=== PATIENT | male | born 1970 | race Hispanic/Latino ===

== ENCOUNTER 2017-01-24 21:17 | Emergency (ER) | payer BC, OTHER ==
[2017-01-24 21:23] VITALS: BMI 27.8
[2017-01-24 21:27] VITALS: BP 111/73; PULSE 68; RESP 16; TEMP 98.1; O2SAT 95
[2017-01-24] MEDS ORDERED: Naproxen 550 mg Tab PO STA (22:00)
[2017-01-24] MEDS ORDERED: TDAP Vaccine 0.5 mL Syr IM ONE (22:00)
[2017-01-24] MEDS ORDERED: Silver Sulfadiazine 1% Cream (20 gm) TOP STA (22:00)
--- NOTE | 2017-01-24 22:04 | ED PDOC ---
Arrival/HPI - General Chief Complaint: Burn Time Seen by Provider: 01/24/17 22:00 Historian: Patient - History of Present Illness Narrative History of Present Illness (Text): 01/24/17 22:13 46 yo M presents the ER after he sustained a burn to the right thumb, first and second digit while he was grilling tonight prior to arrival. Denies any decrease in range of motion, numbness, fever, any other injury. PMD Condo Past Medical History - Provider Review Nursing Documentation Reviewed: Yes - Infectious Disease Hx of Infectious Diseases: None - Tetanus Immunization Tetanus Immunization: Unknown - Cardiac Hx Pacemaker: No - Neurological Hx Paralysis: No - Hematological/Oncological Hx Blood Transfusions: No Hx Blood Transfusion Reaction: No - Musculoskeletal/Rheumatological Hx Musculoskeletal Disorders: No - Psychiatric Hx Emotional Abuse: No Hx Physical Abuse: No Hx Substance Use: No - Anesthesia Hx Anesthesia: No Hx Anesthesia Reactions: No Hx Malignant Hyperthermia: No - Suicidal Assessment Feels Threatened In Home Enviroment: No Family/Social History - Physician Review Nursing Documentation Reviewed: Yes Family/Social History: No Known Family HX Smoking Status: Never Smoked Hx Alcohol Use: Yes (SOCIALLY) Frequency of alcohol use: Socially Hx Substance Use: No Allergies/Home Meds Allergies/Adverse Reactions: Allergies No Known Allergies Allergy (Verified 01/24/17 21:23) Review of Systems - Review of Systems Constitutional: Normal. absent: Fatigue, Weight Change, Fevers Musculoskeletal: Normal. absent: Arthralgias, Back Pain, Neck Pain Skin: Normal, Other (burn). absent: Rash, Pruritis, Skin Lesions Physical Exam Vital Signs Reviewed: Yes Vital Signs Temp Pulse Resp BP Pulse Ox 01/24/17 21:17 98.1 F 68 16 111/73 95 Temperature: Afebrile Blood Pressure: Normal Pulse: Regular Respiratory Rate: Normal Appearance: Positive for: Well-Appearing, Non-Toxic, Comfortable Pain Distress: Mild Mental Status: Positive for: Alert and Oriented X 3 - Systems Exam Upper Extremity: Present: Normal Inspection, Normal ROM, NORMAL PULSES, Neurovascularly Intact, Capillary Refill < 2s, Norm 2-Pt Discrimination, Other ( +first and second dergee burn to the thumb, 1st and 2nd digit, +FROM, cap refill normal, sensation intact). No: Cyanosis, Edema, Deformity Medical Decision Making ED Course and Treatment: 01/24/17 22:16 46 yo M presents the ER after he sustained a burn to the right thumb, first and second digit while he was grilling tonight prior to arrival. Plan: - Tdap IM - Naprosyn PO - Silvadene - Wound dressing Patient advised to keep his wound clean, advised to clean daily with regular soap and water, apply Silvadene twice a day and a clean dressing. Patient advised to follow up with primary care physician in 1-2 days without fail. Advised to take medication as prescribed. Return to the emergency room at any time for any new or worsening symptoms. Patient states he fully agrees with and understands discharge instructions. States that he agrees with the plan and disposition. Verbalized and repeated discharge instructions and plan. I have given the patient opportunity to ask any additional questions. - Medication Orders Current Medication Orders: Discontinued Medications Naproxen (Anaprox Ds) 550 mg PO ONCE STA Stop: 01/24/17 22:01 Silver Sulfadiazine (Silvadene 1% 20 Gm) 1 ea TOP STAT STA Stop: 01/24/17 22:01 Tetanus/Reduced Diphtheria/Acell Pertussis (Boostrix Vaccine Inj) 0.5 ml IM .ONCE ONE Stop: 01/24/17 22:01 - PA / JEWEL GAUGER / Resident Statement / has reviewed & agrees with the documentation as recorded. Disposition/Present on Arrival - Present on Arrival Any Indicators Present on Arrival: No History of DVT/PE: No History of Uncontrolled Diabetes: No Urinary Catheter: No History of Decub. Ulcer: No History Surgical Site Infection Following: None - Disposition Have Diagnosis and Disposition been Completed?: Yes Diagnosis: Burn Disposition: HOME/ ROUTINE Disposition Time: 22:00 Patient Plan: Discharge Patient Problems: Current Active Problems Problem Status Onset Burn Acute Condition: STABLE Discharge Instructions (ExitCare): Second Degree Burn (ED), Acute Wound Care ( ED) Print Language: ARMENIAN Additional Instructions: Thank you for letting us take care of you today. You were treated for burn. The emergency medical care you received today was directed at your acute symptoms. If you were prescribed any medication, please fill it and take as directed. It may take several days for your symptoms to resolve. Return to the Emergency Department if your symptoms worsen, do not improve, or if you have any other problems. Please contact your doctor in 2 days for re-evaluation and follow up / or call one of the physicians/clinics you have been referred to that are listed on the Patient Visit Information form that is included in your discharge packet. Bring any paperwork you were given at discharge with you along with any medications you are taking to your follow up visit. Our treatment cannot replace ongoing medical care by a primary care provider (PCP) outside of the emergency department. Thank you for allowing the [facility] team to be part of your care today. Prescriptions: Naproxen 500 mg PO BID #30 tab Silver Sulfadiazine 1% 20 gm [Silvadene 1%] 1 ea TOP BID #1 tube Forms: WORK NOTE
== END 2017-01-24 22:49 | disposition home or self-care (01) ==
LOC: ED 21:17
DX: T23.241A Burn of second degree of multiple right fingers (nail), including thumb, initial encounter (principal); X15.8XXA Contact with other hot household appliances, initial encounter; Y93.G2 Activity, grilling and smoking food; Y92.89 Other specified places as the place of occurrence of the external cause; Z23 Encounter for immunization